=== PATIENT | female | born 1950 | race Caucasian/White ===

== ENCOUNTER → 2016-07-29 | Outpatient (CLI) | payer OTHER ==
[~2016-07-29] MED LIST: CALC1TAB9 PO; CYAN10004 SL; CYAN3INJ SC; ERGO50002 PO; HYDR1CRE TOP; LISI10TA PO; MULT-612 PO; MULT-655 PO; MULTTAB83 PO; OXYC-292 PO; XRL10 PO
--- NOTE | 2016-07-29 12:53 | MAMMOGRAPHY REPORT ---
BILATERAL DIGITAL SCREENING MAMMOGRAM WITH CAD: 07/29/2016 CLINICAL HISTORY: Routine screening. Patient has no complaints. TECHNIQUE: Current study was also evaluated with a Computer Aided Detection (CAD) system. Bilatera l CC and MLO views were obtained. COMPARISON: Comparison is made to exams dated: 07/24/2015 mammogram, 01/18/2013 mammogram, 01/13/2012 mammogram, 01/07/2011 mammogram, 01/01/2010 mammogram, and 01/20/2014 mammogram - [facility]. BREAST COMPOSITION: The tissue of both breasts is almost entirely fatty. FINDINGS: No suspicious masses, calcifications, or areas of architectural distortion are noted in e ither breast. There has been no significant interval change compared to prior exams. IMPRESSION: ACR BI-RADS CATEGORY 1: NEGATIVE There is no mammographic evidence of malignancy. A 1 year screening mammogram is recommended. The p atient will receive written notification of the results. Approximately 10% of breast cancers are not detected with mammography. A negative mammographic repor t should not delay biopsy if a clinically suggestive mass is present. Carmen Damon M.D. /:07/29/2016 10:28:20 Attendant [employer]: Bibiana Omalley, [facility] letter sent: Normal 1/2 BI-RADS Code: ACR BI-RADS Category 1: Negative
== END | disposition home or self-care (01) ==
LOC: C.MAMM 08:54
PROVIDERS: ATTEND Family Medicine
DX: Z12.31 Encounter for screening mammogram for malignant neoplasm of breast (principal)

== ENCOUNTER → 2017-08-04 | Outpatient (CLI) | payer OTHER ==
--- NOTE | 2017-08-04 15:26 | MAMMOGRAPHY REPORT ---
BILATERAL DIGITAL SCREENING MAMMOGRAM TOMOSYNTHESIS WITH CAD: 08/04/2017 CLINICAL HISTORY: Routine screening. TECHNIQUE: Breast tomosynthesis in addition to standard 2D mammography was performed. Current study was also evaluated with a Computer Aided Detection (CAD) system. COMPARISON: Comparison is made to exams dated: 07/29/2016 mammogram, 07/24/2015 mammogram, 01/20/2014 ma mmogram, 01/18/2013 mammogram, 01/13/2012 mammogram, and 01/07/2011 mammogram - [facility]ter. BREAST COMPOSITION: The tissue of both breasts is almost entirely fatty. FINDINGS: No suspicious masses, calcifications, or areas of architectural distortion are noted in ei ther breast. There has been no significant interval change compared to prior exams. IMPRESSION: ACR BI-RADS CATEGORY 1: NEGATIVE There is no mammographic evidence of malignancy. A 1 year screening mammogram is recommended. The pa tient will receive written notification of the results. Approximately 10% of breast cancers are not detected with mammography. A negative mammographic report should not delay biopsy if a clinically suggestive mass is present. Carmen Damon M.D. ah/:08/04/2017 12:16:59 Mold Changer: Andra JEAN(Wil)(Lilliana), [facility] letter sent: Normal 1/2 BI-RADS Code: ACR BI-RADS Category 1: Negative
== END | disposition home or self-care (01) ==
LOC: C.MAMM 08:56
PROVIDERS: ATTEND Family Medicine
DX: Z12.31 Encounter for screening mammogram for malignant neoplasm of breast (principal)

== ENCOUNTER → 2017-10-23 | Day surgery (SDC) | payer OTHER ==
[2017-10-18 16:17] VITALS: Ht 160 cm; Wt 125.0 kg
[~2017-10-23] VITALS: Ht 160 cm; Wt 125.0 kg
[~2017-10-23] MED LIST changes: +ACET-1256 PO; +CHOL2000 PO; -CYAN10004 SL; -CYAN3INJ SC; +CYAN50002 SL; -ERGO50002 PO; +LABETALOL HCL IV 5 MG/ML 20ML ONE; +LIDOCAINE HCL 2% 2 ML VIAL (20MG/ML) ONE; -LISI10TA PO; +LSN20 PO; -MULT-655 PO; -MULTTAB83 PO; +ONDANSETRON INJ 2 MG/ML 2 ML VIAL IV PRN; -OXYC-292 PO; +PROPOFOL IV EMULSION 10 MG/ML 20 ML VIAL ONE; +REDCAP2 PO; +SODIUM CHLORIDE 0.9% 500ML 500 ML IV ONE; -XRL10 PO; +[UNRECOGNIZED DRUG - OTHER] PO
--- NOTE | 2017-10-23 08:45 | Endo History and Physical ---
History & Physical Date of Service: Oct 23, 2017. Chief Complaint: Colon polyp surveillance Referring Physician: History of Present Illness Patient for colonoscopy today. She has a history of colon polyps with her last exam being in 2008. She has no specific symptoms or issues today. There is no family history of colorectal cancer. Past Surgical History Hx Cardiac Surgery: No Hx Internal Defibrillator: No Hx Pacemaker: No Hx Abdominal Surgery: Yes (gastric bypass 2004) Hx of Implantable Prosthesis: No Hx Cancer Surgery: No Hx Thoracic Surgery: No Hx Orthopedic: Yes (L/R TKA 2012) Hx Urinary Tract Surgery: Yes (CYSTOCELE REPAIR) Social History Smoking Status: Former Smoker Hx Substance Use: No Hx Alcohol Use: No Allergies Coded Allergies: No Known Allergies (Unverified , 10/23/17) Current Medications Reported Home Medications Medications Dose Route/Sig Max Daily Dose Days Date Category Tylenol (Acetaminophen) 500 Mg Tab 500-1,000 Mg PO PRN 10/18/17 Reported Red Yeast Rice (Red Yeast Rice Extract) 600 Mg Cap 1 Cap PO DAILY 10/18/17 Reported [Complete Iron] 30 Mg PO DAILY 10/18/17 Reported Vitamin D3 (Cholecalciferol) 2,000 Unit Cap 1 Cap PO DAILY 30 10/18/17 Reported Lisinopril 20 Mg Tab 1 Tab PO DAILY 10/18/17 Reported B-12 (Cyanocobalamin) 5,000 Mcg Sub 1 Tab SL DAILY 10/18/17 Reported Centrum Ultra Womens (Multiple Vitamins W/ Minerals) 1 Tab Tab 1 Tab PO DAILY 12/31/12 Reported Citracal + D3 Maximum (Calcium Citrate-Vitamin D) 1 Tab Tab 1 Tabs PO QAM 12/31/12 Reported Proctocort (Hydrocortisone (Rectal)) 1 % Cre 1 Appln TOP PRN 11/29/12 Reported Vital Signs Weight (Kilograms): 125 Height (Feet): 5 Height (Inches): 3 Physical Exam General Appearance: no apparent distress Respiratory/Chest: Auscultation: breath sounds normal Cardiovascular: Heart Auscultation: RRR Abdomen: Inspection & Palpation: soft Assessment and Plan Patient for colonoscopy today for colon polyp screening. We have discussed the risks to include bleeding, infection and perforation.
--- NOTE | 2017-10-23 09:31 | Discharge Instructions ---
Endoscopy Patient Instructions Date / Procedure(s) Performed Oct 23, 2017. Colonoscopy Allergy Information Coded Allergies: No Known Allergies (Unverified , 10/23/17) Discharge Date / Findings Oct 23, 2017. 2 colon polyps Internal hemorrhoids Medication Instructions Reported Home Medications Medications Dose Route/Sig Max Daily Dose Days Date Category Tylenol (Acetaminophen) 500 Mg Tab 500-1,000 Mg PO PRN 10/18/17 Reported Red Yeast Rice (Red Yeast Rice Extract) 600 Mg Cap 1 Cap PO DAILY 10/18/17 Reported [Complete Iron] 30 Mg PO DAILY 10/18/17 Reported Vitamin D3 (Cholecalciferol) 2,000 Unit Cap 1 Cap PO DAILY 30 10/18/17 Reported Lisinopril 20 Mg Tab 1 Tab PO DAILY 10/18/17 Reported B-12 (Cyanocobalamin) 5,000 Mcg Sub 1 Tab SL DAILY 10/18/17 Reported Centrum Ultra Womens (Multiple Vitamins W/ Minerals) 1 Tab Tab 1 Tab PO DAILY 12/31/12 Reported Citracal + D3 Maximum (Calcium Citrate-Vitamin D) 1 Tab Tab 1 Tabs PO QAM 12/31/12 Reported Proctocort (Hydrocortisone (Rectal)) 1 % Cre 1 Appln TOP PRN 11/29/12 Reported Provider Instructions Activity Restrictions - No exercising or heavy lifting for 24 hours. - Do not drink alcohol the day of the procedure. - Do not drive a car or operate machinery until the day after the procedure. - Do not make any important decisions or sign important papers in 24 hours after the procedure. Following Day: - Return to full activity which may include returning to work/school. Diet Start your diet with liquids and light foods (jello, soup, juice, toast). Then eat your usual diet if not nauseated. Treatment For Common After Affects For mild abdominal pain, bloating, or excessive gas: - Rest - Eat lightly - Lie on right side Follow-Up Information Follow-up with Dr. Clifton as scheduled Repeat colonoscopy in 3-5 years depending on pathology Anesthesia Information What You Should Know You have had a procedure that required some medicine to reduce anxiety and discomfort. This treatment is called moderate sedation. After receiving the treatment, you may be sleepy, but you will be able to breathe on your own. The effects of the treatment may last for several hours. Follow these instructions along with Activity/Diet recommendations noted above: * Do NOT do anything where dizziness or clumsiness would be dangerous. * Rest quietly at home today, then you can be up and about tomorrow. * Have a responsible person stay with you the rest of today. * You may have had an I.V. today. If so, you may take the dressing off later today. Recommendations Call your doctor if: * Trouble breathing * Continuous vomiting for more than 24 hours * Temperature above 101 degrees * Severe abdominal pain or bloating * Pain not relieved by pain medicine ordered * There is increased drainage or redness from any incision * A large amount of rectal bleeding greater than 2-3 tablespoons. (If you had a polyp/s removed or have hemorrhoids, a small amount of blood - from the rectum is to be expected.) * You have any unanswered questions or concerns. IN THE EVENT OF A SERIOUS EMERGENCY, GO TO THE NEAREST EMERGENCY ROOM Your discharge instructions were prepared by provider Tammy Perez. Patient Instructions Signature Page Nadia Yo Patient (or Guardian) Signature/Date: I have read and understand the instructions given to me by my caregivers. Caregiver/RN/Doctor Signature/Date: The above-named patient and/or guardian has received patient instructions on this date. + Original Patient Signature Page (only) stays with chart. Please make copy for patient.
--- NOTE | 2017-10-23 09:34 | GI REPORT ---
Patient Name: Nadia Yo Procedure Date: 10/23/2017 8:56 AM Date of : 1950 Admit Type: Outpatient Age: 67 Gender: Female Attending MD: Tammy Perez DO Procedure: Colonoscopy Providers: Tammy Perez DO Referring MD: Abimbola Clifton Indications: High risk colon cancer surveillance: Personal history of colonic polyps Medicines: Monitored Anesthesia Care Complications: No immediate complications. Estimated Blood Loss: Estimated blood loss was minimal. Procedure: Pre-Anesthesia Assessment: - Prior to the procedure, a History and Physical was performed, and patient medications, allergies and sensitivities were reviewed. The patient's tolerance of previous anesthesia was reviewed. - The risks and benefits of the procedure and the sedation options and risks were discussed with the patient. All questions were answered and informed consent was obtained. - Patient identification and proposed procedure were verified prior to the procedure by the physician, the nurse and the harness maker. The procedure was verified in the procedure room. - Pre-procedure physical examination revealed no contraindications to sedation. - ASA Grade Assessment: III - A patient with severe systemic disease. - After reviewing the risks and benefits, the patient was deemed in satisfactory condition to undergo the procedure. - Immediately prior to administration of medications, the patient was re-assessed for adequacy to receive sedatives. - The heart rate, respiratory rate, oxygen saturations, blood pressure, adequacy of pulmonary ventilation, and response to care were monitored throughout the procedure. - The physical status of the patient was re-assessed after the procedure. - The anesthesia plan was to use monitored anesthesia care (MAC). After I obtained informed consent, the scope was passed under direct vision. Throughout the procedure, the patient's blood pressure, pulse, and oxygen saturations were monitored continuously. The scope was introduced through the anus and advanced to the terminal ileum. The colonoscopy was performed without difficulty. The patient tolerated the procedure well. The quality of the bowel preparation was good. Findings: The perianal and digital rectal examinations were normal. Pertinent negatives include normal sphincter tone. The terminal ileum appeared normal. A 10 mm polyp was found in the transverse colon. The polyp was sessile. The polyp was removed with a hot snare. Resection and retrieval were complete. Estimated blood loss was minimal. A 6 mm polyp was found in the sigmoid colon. The polyp was sessile. The polyp was removed with a hot snare. Resection and retrieval were complete. Estimated blood loss was minimal. Internal hemorrhoids were found during retroflexion. The hemorrhoids were mild. The exam was otherwise without abnormality. Impression: - The examined portion of the ileum was normal. - One 10 mm polyp in the transverse colon, removed with a hot snare. Resected and retrieved. - One 6 mm polyp in the sigmoid colon, removed with a hot snare. Resected and retrieved. - Internal hemorrhoids. - The examination was otherwise normal. Recommendation: - Discharge patient to home (ambulatory). - Advance diet as tolerated today. - Await pathology results. - Repeat colonoscopy in 3 - 5 years for surveillance based on pathology results. Tammy Perez D.O. Tammy Perez, 10/23/2017 9:34:32 AM This report has been signed electronically. Note Initiated On: 10/23/2017 8:56 AM Number of Addenda: 0 I attest to the content of the Intraoperative Record and orders documented therein, exceptions below {[id number]}
--- NOTE | 2017-10-23 09:36 | Anesthesiology Progress Note ---
Anesthesia Post Op Note Date & Time Oct 23, 2017 at 09:36 Vital Signs Pain Intensity: 2 Vital Signs Past 12 Hours Date Time Temp Pulse Resp B/P (MAP) Pulse Ox O2 Delivery O2 Flow Rate FiO2 10/23/17 09:25 70 18 203/99 (133) 100 Room Air 10/23/17 08:52 36.5 60 18 179/73 (108) 96 Room Air Notes Mental Status: alert / awake / arousable, participated in evaluation Pt Amnestic to Procedure: Yes Nausea / Vomiting: adequately controlled Pain: adequately controlled Airway Patency, RR, SpO2: stable & adequate BP & HR: stable & adequate Hydration State: stable & adequate Anesthetic Complications: no major complications apparent
[2017-10-23 09:55] VITALS: BP 160/60; PULSE 40; O2SAT 98
== END | disposition home or self-care (01) ==
LOC: C.GI 08:10
PROVIDERS: ATTEND Internal Medicine Gastroenterology
DX: Z12.11 Encounter for screening for malignant neoplasm of colon (principal); D12.3 Benign neoplasm of transverse colon; D12.5 Benign neoplasm of sigmoid colon; K64.8 Other hemorrhoids; K21.9 Gastro-esophageal reflux disease without esophagitis; I10 Essential (primary) hypertension; E66.9 Obesity, unspecified; Z68.42 Body mass index [BMI] 45.0-49.9, adult; Z86.010 Personal history of colon polyps; Z96.653 Presence of artificial knee joint, bilateral